=== PATIENT | male | born 1950 | race Hispanic/Latino ===

== ENCOUNTER 2021-01-18 11:47 | Outpatient (CLI) | payer BC, MEDICARE | END 2021-01-18 11:48 | disposition home or self-care (01) | LOC: CSHCT 11:47 | PROVIDERS: ATTEND Family Medicine | DX: R06.00 Dyspnea, unspecified (principal); Z86.16 Personal history of COVID-19; R06.02 Shortness of breath; R91.8 Other nonspecific abnormal finding of lung field; J47.9 Bronchiectasis, uncomplicated | CPT/HCPCS: 71260; 82565 ==